=== PATIENT | female | born 1965 | race Caucasian/White ===

== ENCOUNTER 2016-06-16 15:02 | Observation (INO) | payer OTHER ==
--- NOTE | 2016-06-16 15:11 | EDPHY ---
H & P Stated Complaint: cp x 2 days/feels irregular/dx vasospasms previously HPI/ROS: CHIEF COMPLAINT: Chest pain. HISTORY OF PRESENT ILLNESS: The patient is a 51-year-old female presenting with 3 days of chest pain. This pain is described as "pounding and off-beat." The episodes are intermittent and have been keeping her awake at night. She has also noticed that she is hypertensive. She does not have a history of hypertension. She does take 25mg Toprol BID for a history of "vasospasms and aortic enlargement." In 2010 she underwent cardiac workup after experiencing chest pain. She has had that same pain subsequently, on and off. She describes it as a pushing sensation in the low substernal region. She is not currently experiencing pain in that region. Her symptoms at that time were different from today's. Cardiac catheterization in 2010 was negative for coronary artery disease. She wore a Holter monitor in in March of 2011 and underwent electrophysiologic studies. She was ultimately diagnosed with vaso spasm and at some point thereafter was started on Toprol. She denies shortness of breath , recent sickness, cough, fever, nausea, vomiting. No history of hypertension or hyperlipidemia. She recorded a blood pressure today with a diastolic of 110. She has a strong family history of heart disease. Her mother and father have a history of CAD in their 50s. She describes varying exercise tolerance. She is an active person and notes that sometimes she is able to ride her bike long distances with no difficulty and other time she has trouble writing and feels fatigued. She sometimes experiences chest pain with exercise. REVIEW OF SYSTEMS: A 10 point review of systems was performed and is negative with the exception of the elements mentioned in the history of present illness. She had an episode of acute unexpected diarrhea today while driving. This has not recurred. No back pain. Source: Patient Exam Limitations: No limitations - Personal History LMP (Females 10-55): Over 28 Days Ago Current Tetanus/Diphtheria Vaccine: Yes Tetanus Vaccine Date: 2010 - Medical/Surgical History Hx Asthma: No Hx Chronic Respiratory Disease: No Hx Diabetes: No Hx Cardiac Disease: Yes Hx Renal Disease: No Hx Cirrhosis: No Hx Alcoholism: No Hx HIV/AIDS: No Hx Splenectomy or Spleen Trauma: No Other PMH: Vasospasms, SVT. 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 - Physical Exam Exam: General Appearance: Alert. Vital signs reviewed. blood pressure 132/94. Eyes: Pupils equal and round, no conjunctival injection, no discharge. Anicteric. ENT, Mouth: Mucous membranes are moist, no oropharyngeal erythema or edema. Neck: No lymphadenopathy, supple. No jugular venous distention. Respiratory: Lungs are clear to auscultation; no wheezes, rales, or rhonchi. Cardiovascular: Regular rate and rhythm; no murmur, rub, or gallop. Gastrointestinal: Abdomen is soft and nontender, no masses or organomegaly, bowel sounds normal. Skin: Warm and dry, no rashes on exposed skin, normal color. Back: Nontender to palpation over the thoracolumbar spine. No CVAT. Extremities: No lower extremity edema, no calf tenderness or swelling. Neurological: Alert and oriented. Moving all four extremities easily and equally. Psychiatric: Normal affect. Constitutional: Initial Vital Signs Temperature (C) 36.7 C 06/16/16 15:04 Heart Rate 76 06/16/16 15:04 Respiratory Rate 20 06/16/16 15:04 Blood Pressure 132/94 H 06/16/16 15:04 O2 Sat (%) 95 06/16/16 15:04 O2 Delivery Mode Room Air Allergies/Adverse Reactions: No Known Allergies Allergy (Verified 06/16/16 15:04) Home Medications: Medication Instructions Recorded Estradiol [Minivelle] 0.0375 mg TD .QMON,THURS 06/16/16 Herbals/Supplements -Info Only 1 ea PO AD 06/16/16 Metoprolol Succinate Xr [Toprol Xl 25 mg PO DAILY 06/16/16 25 mg (*)] Multivitamins [Multivitamin (*)] 1 each PO DAILY 06/16/16 Progesterone,Micronized 200 mg PO .DAY 14-26 OF CYCLE 06/16/16 [Progesterone] Testosterone Cmpd 1 tab SL DAILY 06/16/16 Medical Decision Making - Diagnostics EKG Interpretation: The 12 lead EKG was interpreted by myself. See hard copy and/or "tracemaster" electronic copy for interpretation. Sinus rhythm rate 80. T wave inversion in V2. T wave flattening in V3. This was compared to her EKG from 2011. In 2011 she had a normal T-wave in V2. Imaging: Study: PA and Lateral Chest X-ray Indication: Trauma, Chest pain Results: I viewed the images myself on the PACS system. My interpretation of the images is: scoliosis, no acute cardiopulmonary disease. The radiologist interpretation is: No evidence of acute cardiopulmonary abnormality. ED Course/Re-evaluation: An IV was established and labs ordered. EKG and chest x-ray obtained. 324mg PO Aspirin administered. I reviewed patient's past medical notes including cardiac catheterization 11/2010 and electrophysiology studies. The patient was given a Holter monitor around this time (March 2011) by her parts washer that showed runs of SVT. CBC and CHEM are unremarkable including troponin. 1618: Reassessed patient. Discussed results of x-ray and blood work. No new complaints. 1629: Consulted with Dr. Valdovinos, cardiology. He agrees with admission for further monitoring and workup. Hospitalist paged. Patient re-evaluated. She has no new symptoms. She has not had ectopy or tachyarrhythmia on the monitor. She does describe very mild substernal chest pressure to me. Her HEART score major cardiac events is 3, putting her at low risk of a major cardiac event. 1636: Consulted with Dr. Hernandez, hospitalist. He accepts admission. Differential Diagnosis: Chest pain including but not limited to myocardial ischemia, pulmonary embolus, chest wall pain, pleural inflammation and pulmonary infectious causes. - Data Points Laboratory Results: Laboratory Results 06/16/16 15:25 06/16/16 15:25 06/16/16 06/16/16 15:25 15:25 WBC 9.07 10^3/uL 10^3/uL (3.80-9.50) RBC 4.97 10^6/uL 10^6/uL (4.18-5.33) Hgb 15.4 g/dL g/dL (12.6-16.3) Hct 44.6 % % (38.0-47.0) MCV 89.7 fL fL (81.5-99.8) MCH 31.0 pg pg (27.9-34.1) MCHC 34.5 g/dL g/dL (32.4-36.7) RDW 12.3 % % (11.5-15.2) Plt Count 304 10^3/uL 10^3/uL (150-400) MPV 10.3 fL fL (8.7-11.7) Neut % (Auto) 58.4 % % (39.3-74.2) Lymph % (Auto) 32.4 % % (15.0-45.0) Rolette % (Auto) 7.1 % % (4.5-13.0) Eos % (Auto) 1.1 % % (0.6-7.6) Baso % (Auto) 0.8 % % (0.3-1.7) Nucleat RBC Rel Count 0.0 % % (0.0-0.2) Absolute Neuts (auto) 5.30 10^3/uL 10^3/uL (1.70-6.50) Absolute Lymphs (auto) 2.94 10^3/uL 10^3/uL (1.00-3.00) Absolute Monos (auto) 0.64 10^3/uL 10^3/uL (0.30-0.80) Absolute Eos (auto) 0.10 10^3/uL 10^3/uL (0.03-0.40) Absolute Basos (auto) 0.07 10^3/uL 10^3/uL (0.02-0.10) Absolute Nucleated RBC 0.00 10^3/uL 10^3/uL (0-0.01) Immature Gran % 0.2 % % (0.0-1.1) Immature Gran # 0.02 10^3/uL 10^3/uL (0.00-0.10) Sodium 139 mEq/L mEq/L (134-144) Potassium 3.8 mEq/L mEq/L (3.5-5.2) Chloride 107 mEq/L mEq/L (97-110) Carbon Dioxide 21 mEq/l L mEq/l (22-31) Anion Gap 11 mEq/L mEq/L (8-16) BUN 13 mg/dL mg/dL (7-23) Creatinine 0.6 mg/dL mg/dL (0.6-1.0) Estimated GFR > 60 Glucose 84 mg/dL mg/dL (70-100) Calcium 9.7 mg/dL mg/dL (8.5-10.4) Magnesium 2.1 mg/dL mg/dL (1.6-2.3) Troponin I < 0.012 ng/mL ng/mL (0-0.034) Medications Given: Discontinued Medications Aspirin (Aspirin) 324 mg PO EDNOW ONE Stop: 06/16/16 15:24 Last Admin: 06/16/16 15:25 Dose: 324 mg Departure - Departure Disposition: [facility] Inpatient Acute Clinical Impression: Chest pain Qualifiers: Chest pain type: unspecified Qualified Code(s): R07.9 - Chest pain, unspecified Condition: Fair Report Scribed for: Radha Cisneros Report Scribed by: Adalberto Pate Date of Report: 06/16/16 Time of Report: 15:14 Physician Review and Approval Statement: 06/16/16 15:11 Portions of this note were transcribed by the medical illustrator. I, Dr. Radha Cisneros, personally performed the history, physical exam, and medical decision- making; and confirmed the accuracy of the information in the transcribed note.
[2016-06-16] MEDS ORDERED: ASPIRIN 81 MG CHEWABLE TAB ONE (15:22)
[2016-06-16] MEDS ORDERED: ASPIRIN 81 MG CHEWABLE TAB PO ONE (15:23)
--- NOTE | 2016-06-16 15:30 | CPEKG ---
Heart Rate: 80 RR Interval: 750 P-R Interval: 176 QRSD Interval: 82 QT Interval: 408 QTC Interval: 471 P [place]: 74 QRS [place]: 49 T Wave [place]: 30 EKG Severity - BORDERLINE ECG - EKG Impression: SINUS RHYTHM EKG Impression: T wave inversion V2 and T wave flattening V3 Electronically Signed By: Radha Cisneros 16-Jun-2016 18:50:10
[2016-06-16 15:36] LABS: % IMMATURE GRANULYOCYTES 0.2 % (0.0-1.1); ABSOLUTE IMMATURE GRANULOCYTES 0.02 10^3/uL (0.00-0.10); ADD DIFF? NO; ADD MORPH? NO; ADD SCAN? NO; ATYPICAL LYMPHOCYTE FLAG 10 (0-99); FRAGMENT RBC FLAG 10 (0-99); HEMATOCRIT 44.6 % (38.0-47.0); HEMOGLOBIN 15.4 g/dL (12.6-16.3); LEFT SHIFT FLG 0 (0-99); LIPEMIA HEMOLYSIS FLAG 90 (0-99); MEAN CELL HEMOGLOBIN CONCENTR. 34.5 g/dL (32.4-36.7); MEAN CELL VOLUME 89.7 fL (81.5-99.8); MEAN PLATELET VOLUME 10.3 fL (8.7-11.7); PLATELET CLUMPS FLAG 20 (0-99); PLATELET COUNT 304 10^3/uL (150-400); RED BLOOD CELL COUNT 4.97 10^6/uL (4.18-5.33); RED CELL DISTRIBUTION WIDTH 12.3 % (11.5-15.2)
[2016-06-16 15:50] LABS: ANION GAP 11 mEq/L (8-16); CALCIUM 9.7 mg/dL (8.5-10.4); CARBON DIOXIDE 21 mEq/l (22-31); CHLORIDE 107 mEq/L (97-110); CREATININE 0.6 mg/dL (0.6-1.0); GLOMERULAR FILTRATION RATE > 60; GLUCOSE 84 mg/dL (70-100); MAGNESIUM 2.1 mg/dL (1.6-2.3); POTASSIUM 3.8 mEq/L (3.5-5.2); SODIUM 139 mEq/L (134-144)
[2016-06-16 16:03] LABS: TROPONIN I < 0.012 ng/mL (0-0.034)
[2016-06-16 17:24] VITALS: RESP 16
[2016-06-16] MEDS: METOPROLOL SUCCINATE XR 25 MG TAB PO SCH (18:09)
--- NOTE | 2016-06-16 20:12 | GHP ---
[f rep st] HISTORY AND PHYSICAL DATE OF ADMISSION: 06/16/2016 CHIEF COMPLAINT: Palpitations, elevated blood pressure, chest pressure. HISTORY OF PRESENT ILLNESS: This is a 51-year-old female who has been seeing the building certifier for s ome time. In 2010 she had what appeared to be acute coronary syndrome with EKG changes and chest pr essure. She did undergo catheterization at that time which was completely clean. She then underwen t EP study for possible supraventricular tachycardia but this is not inducible. Since then, she has been on Toprol-XL. She does admit to exercise intolerance at times which seems to be random. Some times she is able to ride 100 miles on her bike and other times, she can hardly ride. However, she was in her usual state of health until about 4 days ago when she started developing hea rt palpitations which sound more like PVCs to PACs with kind of irregular heartbeat with skipped akterina ts. She does not have any tachycardia. Last night, however, she felt like she was having heart vinicius nding but, again, not elevated heart rate. She has been having some chest pressure throughout the l ast few days as well, intermittent. She measured her blood pressure today and it was elevated at 16 0s and then at 170s systolic. Her blood pressure usually runs in the low 100s. She then came to [facility] emergency department. Currently, she is chest pain free. Of note, she states that she did refill her Toprol about 4 days ago. REVIEW OF SYSTEMS: A 10-point review of systems obtained other than stated was negative. PAST MEDICAL HISTORY: Cardiac history as above. Possibly vasospasm. MEDICATIONS: Toprol and hormone replacement. SOCIAL HISTORY: No smoking, is quite active climbing and bike riding among other things. 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 FAMILY HISTORY: States father had bypass surgery. Both her sister and brother are quite unhealthy. PHYSICAL EXAM: VITAL SIGNS: Afebrile blood pressure is 152/87, heart rate 54, oxygen saturation 90 .7% on room air. GENERAL: Patient is well developed, in no apparent distress. HEENT: Nonicteric sclerae. Extraocular movements intact. Moist mucous membranes. NECK: Supple. No thyromegaly. L UNGS: Good effort. Clear to auscultation bilaterally. CARDIOVASCULAR: Regular rate and rhythm. No murmurs, rubs, or gallops. ABDOMEN: Positive bowel sounds. Soft, nontender, nondistended. No hepatosplenomegaly. EXTREMITIES: No clubbing, cyanosis, or edema. SKIN: Without rash. Warm, dry , intact. NEUROLOGIC: Alert and oriented x3. Moving all 4 extremities equally. PSYCH: Normal mo od and affect. LABS: Chemistry and troponin are negative. CBC is normal. EKG, personally reviewed and interpreted, shows normal sinus rhythm. No ischemic changes. Chest x-ray negative. ASSESSMENT: This is a 51-year-old female presenting with heart palpitations and elevated blood pres sure as well as some chest pressure. PLAN: 1. Patient cannot point to any changes that would contribute. She is not having excessive stress. No change in caffeine intake. I do find it interesting that she did refill her Toprol-XL just a fe w days ago. I am wondering if perhaps she received an ineffective batch. Her symptoms do sound lik e possible beta-nuris withdrawal as she has had a pounding heart, elevated blood pressure. I am g oing to give her an extra dose of Toprol tonight and see if her blood pressure improves with some of her symptomatology. Will rule out cardiac enzymes. She had a completely negative catheterization in 2010 and has really minimal risk factors. I do not think that she needs a stress test at this ti me. If she is feeling better tomorrow could maybe consider refilling her Toprol or following up wit h her building certifier. 2. Elevated blood pressure. Will hold off on adding another blood pressure medicine and see what d oes with the extra dose of Toprol tonight. /[id number]/MODL
[2016-06-17 10:27] VITALS: BP 113/67; TEMP 98.2; O2SAT 94
[2016-06-17] MEDS: METOPROLOL SUCCINATE XR 25 MG TAB PO SCH (10:38)
[2016-06-17 10:39] VITALS: PULSE 66
--- NOTE | 2016-06-17 12:41 | PDDCSUM ---
Discharge Summary Discharge Summary: Date of Admission: 06/16/2016 Date of Discharge: 06/17/2016 Discharge Diagnoses: Paroxysmal SVT Admission Diagnoses: Accelerated hypertension Palpitations Tachycardia Chest pressure History of paroxysmal SVT Hospital Course: Patient is a 51-year-old female with a past medical history of paroxysmal SVT for which she takes Toprol XL who was admitted with accelerated hypertension, chest pressure, tachycardia. About 4 days prior to hospital visit, she started to developed some symptoms of irregular heartbeat with skipped beats and tachycardia. The night prior to admission, she developed a pounding heart, without tachycardia. She had been having some chest pressure in the few days before admission. She found that her systolic blood pressure was in the 160s to 170s. She was concerned because normally her systolic blood pressure is in the low 100s. Subsequently she came to the ED at [facility]. She was admitted for observation. Interestingly, she refilled her Toprol XL 4 days prior to admission. It was thought that perhaps her new Toprol XL medication was ineffective. Patient was continued on hospital administered metoprolol in the hospital and actually given an extra dose. The patient quickly felt better. The next morning, she was found to have a normal blood pressure without tachycardia and was in normal sinus rhythm. She felt back to her baseline status. She has an appointment with her safety manager, Dr. Metcalf on 06/19/16 in the AM. She is being discharged on 06/17/2016 in stable condition with instructions to follow up with her safety manager in 2 days. Physical Exam: General: The patient is a thin female who is alert and in no acute distress. HEENT: normocephalic, conjunctivae clear. Mucous membranes moist. Neck: trachea midline. CV: RRR, no MRG. Resp: CTAB no RRW. Abd: soft and nondistended. Musculoskeletal: Normal muscle tone and bulk. Neuro: cranial nerves II XII grossly intact. Psych: appropriate mood/affect. Skin: No pallor. Condition: Stable. Discharged to: Home. Pertinent tests/labs/imaging: Two-view chest x-ray: No evidence of acute cardiopulmonary abnormality. EKG: Normal sinus rhythm, regular rate, T-wave inversion in V2, T-wave flattening in V3 (no change, consistent with last EKG from July 2015). TTE: mildly dilated RV, mild MR/TR. Troponins: <0.012, 0.016, <0.012 Medications: Resuming home medications which include hormones and supplements. These include Toprol XL 25 mg. Patient was given a new prescription for this , as it is possible she had an ineffective batch last week. Special instructions: Patient is return to the hospital if she experiences recurrent or worsening symptoms. Follow up: Follow up with her safety manager Dr. Metcalf in 2 days. Follow up with her primary care physician Dr. Yin Gilmore within 2 weeks.
--- NOTE | 2016-06-17 13:21 | ECHO ---
[id number] + + [address] : : [place] [address] : : [phone] + + Adult Echocardiographic Report + --------+ :Name: BEATRIZ LAURENT MStudy Date: 06/17/2016 08:26 AM : : Hospital Admission Number: [id number] Locat ion: 143: :: 1965 Gender: Female Height: 66 in : :Age: 51 yrs Race: WH Weight: 140 l b : :Reason For Study: Follow up Ao Root dilation : : BSA: 1.7 mete rs2 : :History: Ao Root dilation : + --------+ MMode/2D Measurements \T\ Calculations IVSd: 1.0 cm LVIDd: 3.9 cm FS: 42.4 % Ao root diam: LVPWd: 0.80 cm LVIDs: 2.3 cm EDV(Teich): 66.5 ml2.2 cm ESV(Teich): 17.2 ml EF(Teich): 74.1 % LVOT diam: 2.1 cm LVLd ap4: 7.7 cm SV(MOD-sp4): LVOT area: EDV(MOD-sp4): 52.0 ml 3.5 cm2 86.0 ml LVLs ap4: 6.2 cm ESV(MOD-sp4): 34.0 ml EF(MOD-sp4): 60.5 % Normal Measurement Values: + + :LVIDd (3.5-5.7cm) IVSd (0.6-1.1cm) LVPWd (0.6-1.1cm) Aortic Root (2.0-3.7cm)Left Atrium (1.5-4.0cm): :LV Vol(d) (76-115ml) LV Vol(s) (29-48ml) Ejec Fraction (50-65%)PV Joey (0.6- 1.2m/s) TV Joey (0.4-1.0m/s) : :MV E Joey (0.8-1.0m/s)MV A Joey (0.3-1.0m/s)LVOT Joey (0.7-1.2m/s) Asc Ao Joey ( 0.9-1.8m/s) : + + Doppler Measurements \T\ Calculations MV E max joey: MV V2 max: Ao V2 max: LV V1 max: 85.9 cm/sec 95.0 cm/sec 131.0 cm/sec 94.7 cm/sec MV A max joey: MV max PG: Ao max P.9 mmHgLV V1 max P.6 cm/sec 3.6 mmHg Ao mean P.6 mmHg MV E/A: 1.3 MV V2 mean: 4.0 mmHg LV V1 mean PG: MV dec time: 60.5 cm/sec Ao V2 mean: 1.0 mmHg 0.26 sec MV mean P.8 cm/sec LV V1 mean: 2.0 mmHg Ao V2 VTI: 30.9 cm 53.6 cm/sec MV V2 VTI: 31.1 cmAVA(I,D): 2.1 cm2 LV V1 VTI: 18.3 cm MVA(VTI): 2.0 cm2 ANGEL(V,D): 2.5 cm2 SV(LVOT): 63.4 ml PA V2 max: TR max joey: Pulm Sys Joey: 96.3 cm/sec 171.0 cm/sec 64.7 cm/sec PA max PG: TR max PG: Pulm Jimenez Joey: 3.7 mmHg 11.7 mmHg 66.1 cm/sec Pulm S/D: 0.98 Left Ventricle The left ventricle is normal in size and function. There is normal left ventricular wall thickness. Ejection Fraction = 65%. No regional wall motion abnormalities noted. Right Ventricle The right ventricle is mildly dilated. The right ventricular systolic function is normal. Atria The left atrial size is normal. Right atrial size is normal. The interatrial septum is intact with no evidence for an atrial septal defect. Mitral Valve The mitral valve is normal in structure and function. There is no mitral valve stenosis. There is trace mitral regurgitation. Tricuspid Valve The tricuspid valve is normal in structure and function. There is no tricuspid stenosis. There is trace tricuspid regurgitation. Right ventricular systolic pressure is normal. Aortic Valve The aortic valve is normal in structure and function. The aortic valve is trileaflet. There is no aortic stenosis. There is no aortic insufficiency. Pulmonic Valve The pulmonic valve is not well visualized. There is no pulmonic valvular stenosis. There is no pulmonic valvular regurgitation. Great Vessels The aortic root is normal size. Normal Ascending Aorta 3.1 cm. Pericardium/Pleural There is a fat pad seen. There is no pericardial effusion. Conclusion A complete two-dimensional transthoracic echocardiogram was performed (2D, M-mode, Doppler and color flow Doppler). The left ventricle is normal in size and function. Ejection Fraction = 65%. The right ventricle is mildly dilated. There is trace mitral regurgitation. There is trace tricuspid regurgitation. Right ventricular systolic pressure is normal. The aortic valve is normal in structure and function. Normal Ascending Aorta 3.1 cm The aortic root is normal size. Final Reading Physician: Betito Fritz electronically signed on 06/17/2016 01:20 PM Ordering Physician: Hemal Hernandez Performed By: Doris Oshea
[2016-06-17] MEDS ORDERED: ACETAMINOPHEN 325 MG TAB ONE (15:43)
[2016-06-17] MEDS ORDERED: ACETAMINOPHEN 325 MG TAB PO ONE (16:00)
[2016-06-19] MEDS ORDERED: ESTRADIOL VIVELLE 0.0375 MG PATCH TD SCH (08:00)
== END 2016-06-17 16:16 | disposition home or self-care (01) ==
LOC: F1N 17:01
PROVIDERS: ADMIT Internal Medicine; ATTEND Internal Medicine
DX: I47.1 Supraventricular tachycardia (principal); I10 Essential (primary) hypertension
CPT/HCPCS: 71020; 93005; 93306; 99285; G0378

== ENCOUNTER → 2016-07-14 | Outpatient (CLI) | payer OTHER | LOC: FIMAGING 14:27 | DX: Z12.31 Encounter for screening mammogram for malignant neoplasm of breast (principal) | CPT/HCPCS: G0202 ==

== ENCOUNTER → 2017-07-18 | Outpatient (CLI) | payer OTHER | LOC: FIMAGING 13:43 | PROVIDERS: ATTEND Family Medicine | DX: Z12.31 Encounter for screening mammogram for malignant neoplasm of breast (principal) ==

== ENCOUNTER → 2018-09-03 | Outpatient (CLI) | payer OTHER | LOC: FIMAGING 09:45 ==